=== PATIENT | female | born 1935 | race Caucasian/White ===

== ENCOUNTER 2021-12-13 13:27 | Inpatient (IN) | payer MEDICAID, MEDICARE ==
[~2021-12-13] VITALS: Ht 160 cm; Wt 56.7 kg
[2021-12-13] MEDS ORDERED: DEXAMETHASONE SOD PHOSPHATE 10 MG/ML VIAL IV ONE (14:00)
[2021-12-13] MEDS ORDERED: AMLO-212 PO (14:03)
[2021-12-13] MEDS ORDERED: PRAV40TA3 PO (14:03)
[2021-12-13] MEDS ORDERED: FAMO40TA7 PO (14:03)
[2021-12-13] MEDS ORDERED: ISOS30TA86 PO (14:03)
[2021-12-13] MEDS ORDERED: LISI40TA13 PO (14:03)
[2021-12-13] MEDS ORDERED: AMOX1TAB16 PO (14:03)
[2021-12-13] MEDS ORDERED: ACET-2605 PO (14:03)
[2021-12-13] MEDS ORDERED: ASPI-1169 PO (14:03)
[2021-12-13] MEDS ORDERED: CHOL100043 PO (14:03)
[2021-12-13] MEDS ORDERED: RANO500T6 PO (14:08)
[2021-12-13] MEDS ORDERED: DEXAMETHASONE SOD PHOSPHATE 10 MG/ML VIAL ONE (14:10)
[2021-12-13 14:18] LABS: BASOPHILS % (AUTO) 0.2 % (0.0-2.0); HEMATOCRIT 38 % (33-45); HEMOGLOBIN 12.7 g/dL (11.5-14.8); LYMPHOCYTES # (AUTO) 0.4 K/uL (0.8-4.8); LYMPHOCYTES % (AUTO) 2.9 % (20.0-44.0); MEAN CORPUSCULAR HGB CONC 34 g/dl (31.0-36.0); MEAN CORPUSCULAR VOLUME 88 fL (82-100); MONOCYTES # (AUTO) 0.6 K/uL (0.1-1.30); MONOCYTES % (AUTO) 4.1 % (2.0-12.0); NEUTROPHILS # (AUTO) 13.5 K/uL (1.8-8.9); NEUTROPHILS % (AUTO) 92.8 % (43.0-81.0); PLATELET COUNT (AUTO) 301 K/uL (150-450); RED BLOOD CELL COUNT(AUTO) 4.28 MIL/uL (4.0-5.2); WHITE BLOOD COUNT (AUTO) 14.6 K/uL (4.3-11.0)
[2021-12-13 14:34] LABS: D-DIMER 0.84 mg/L(FEU (0.17-0.50)
[2021-12-13 14:37] LABS: CALCIUM, SERUM 9.8 mg/dL (8.5-10.1); CARBON DIOXIDE 24 mmol/L (21-32); CHLORIDE 107 mmol/L (98-107); CREATININE 1.1 mg/dL (0.6-1.3); GLUCOSE 161 mg/dL (74-106); POTASSIUM 4.3 mmol/L (3.5-5.1); SODIUM SERUM 139 mmol/L (136-145); UREA NITROGEN, BLOOD 33 mg/dL (7-18)
[2021-12-13 14:43] LABS: CREATINE KINASE, TOTAL 30 U/L (26-192)
[2021-12-13 14:47] LABS: C-REACTIVE PROTEIN 5.9 mg/dL (0.0-0.9)
[2021-12-13 14:48] LABS: ALANINE AMINOTRANSFERASE 21 U/L (12-78); ALKALINE PHOSPHATASE 37 U/L (46-116); ASPARTATE AMINOTRANSFERASE 20 U/L (15-37); BILIRUBIN,TOTAL 0.4 mg/dL (0.2-1.0); TOTAL PROTEIN, SERUM 7.5 g/dL (6.4-8.2)
[2021-12-13 15:51] LABS: BILIRUBIN,URINE NEGATIVE (NEGATIVE); COLOR,URINE YELLOW (YELLOW); LEUKOCYTE ESTERASE ,URINE NEGATIVE (NEGATIVE); NITRITE, URINE NEGATIVE (NEGATIVE); PROTEIN,URINE 100 mg/dl (NEGATIVE); UGLUCOSE NEGATIVE (NEGATIVE); UROBILINOGEN,URINE 0.2 EU/dL (0.2)
[2021-12-13 16:58] LABS: BACTERIA,URINE None seen /HPF (None Seen); RBC,URINE 0-2 /HPF (0-2); SQUAMOUS EPITHELIAL CELL,UR Few /HPF (None Seen); WBC,URINE 0-2 /HPF (0-3)
[2021-12-13] MEDS ORDERED: REMDESIVIR (CHARGED) 200 MG, *LOADING DOSE 1 EA in IV NS 0.9% 210 ML IV ONE (17:00)
[2021-12-13] MEDS ORDERED: GUAIFENESIN/CODEINE 10 ML UDC PO PRN (17:00)
[2021-12-13 18:14] VITALS: BP 140/76
[2021-12-13] MEDS: DEXAMETHASONE SOD PHOSPHATE 10 MG/ML VIAL IV SCH ×2 (19:01→22:54)
[2021-12-13] MEDS: AMLODIPINE BESYLATE 5 MG TABLET PO SCH (19:02)
[2021-12-13] MEDS: ACETAMINOPHEN ES 500 MG TABLET PO PRN (19:02)
[2021-12-13 20:00] VITALS: BP 143/71
[2021-12-13] MEDS: RANOLAZINE 500 MG TAB.ER.12H PO SCH (21:33)
[2021-12-14] VITALS: BP 141/69
[2021-12-14 04:00] VITALS: BP 137/71
[2021-12-14 06:58] LABS: BASOPHILS % (AUTO) 0.1 % (0.0-2.0); HEMATOCRIT 38 % (33-45); HEMOGLOBIN 12.7 g/dL (11.5-14.8); LYMPHOCYTES # (AUTO) 0.3 K/uL (0.8-4.8); LYMPHOCYTES % (AUTO) 3.6 % (20.0-44.0); MEAN CORPUSCULAR HGB CONC 34 g/dl (31.0-36.0); MEAN CORPUSCULAR VOLUME 87 fL (82-100); MONOCYTES # (AUTO) 0.3 K/uL (0.1-1.30); NEUTROPHILS # (AUTO) 8.8 K/uL (1.8-8.9); NEUTROPHILS % (AUTO) 93.3 % (43.0-81.0); PLATELET COUNT (AUTO) 307 K/uL (150-450); RED BLOOD CELL COUNT(AUTO) 4.29 MIL/uL (4.0-5.2); WHITE BLOOD COUNT (AUTO) 9.4 K/uL (4.3-11.0)
[2021-12-14 07:33] LABS: ALBUMIN 2.8 g/dL (3.4-5.0); BILIRUBIN,TOTAL 0.5 mg/dL (0.2-1.0); CALCIUM, SERUM 9.9 mg/dL (8.5-10.1); CREATININE 0.9 mg/dL (0.6-1.3); POTASSIUM 4.2 mmol/L (3.5-5.1); TOTAL PROTEIN, SERUM 7.5 g/dL (6.4-8.2)
[2021-12-14 08:00] VITALS: BP 146/75
[2021-12-14] MEDS: ISOSORBIDE MONONITRATE (30MG) 30 MG TAB.SR.24H PO SCH (09:44)
[2021-12-14] MEDS: ASPIRIN 81 MG TAB.CHEW PO SCH (09:44)
[2021-12-14] MEDS: CHOLECALCIFEROL 1,000 UNIT TABLET (VIT D3) PO SCH (09:45)
[2021-12-14] MEDS: RANOLAZINE 500 MG TAB.ER.12H PO SCH ×2 (09:45→21:40)
[2021-12-14] MEDS: ATORVASTATIN 10 MG TABLET PO SCH (09:45)
[2021-12-14 09:46] LABS: C-REACTIVE PROTEIN 6.7 mg/dL (0.0-0.9)
[2021-12-14] MEDS: LISINOPRIL (20MG) 20 MG TABLET PO SCH (09:46)
[2021-12-14] MEDS: AMLODIPINE BESYLATE 5 MG TABLET PO SCH ×2 (09:46→17:32)
[2021-12-14] MEDS: FAMOTIDINE (20 MG) 20 MG TABLET PO SCH (09:46)
[2021-12-14] MEDS: AZITHROMYCIN 500 MG in IV D5W 250 ML IV SCH (10:21)
[2021-12-14] MEDS: DEXAMETHASONE SOD PHOSPHATE 10 MG/ML VIAL IV SCH ×3 (10:21→23:38)
[2021-12-14 12:00] VITALS: BP 141/75
[2021-12-14 16:00] VITALS: BP 118/62
[2021-12-14] MEDS ORDERED: REMDESIVIR (CHARGED) 100 MG in IV NS 0.9% 100 ML IV SCH (17:00)
[2021-12-14] MEDS: ENOXAPARIN SODIUM 30 MG/0.3 ML DISP.SYRIN SQ SCH ×2 (17:35→21:40)
[2021-12-14 20:00] VITALS: BP 163/81
[2021-12-15] VITALS: BP 139/64
[2021-12-15 04:00] VITALS: BP 137/61
[2021-12-15] MEDS: DEXAMETHASONE SOD PHOSPHATE 10 MG/ML VIAL IV SCH ×3 (05:51→16:45)
[2021-12-15 07:39] LABS: BASOPHILS % (AUTO) 0.1 % (0.0-2.0); HEMATOCRIT 37 % (33-45); HEMOGLOBIN 12.6 g/dL (11.5-14.8); LYMPHOCYTES # (AUTO) 0.4 K/uL (0.8-4.8); LYMPHOCYTES % (AUTO) 3.4 % (20.0-44.0); MEAN CORPUSCULAR HGB CONC 34 g/dl (31.0-36.0); MEAN CORPUSCULAR VOLUME 87 fL (82-100); MONOCYTES # (AUTO) 0.6 K/uL (0.1-1.30); MONOCYTES % (AUTO) 5.5 % (2.0-12.0); NEUTROPHILS # (AUTO) 9.7 K/uL (1.8-8.9); PLATELET COUNT (AUTO) 345 K/uL (150-450); RED BLOOD CELL COUNT(AUTO) 4.28 MIL/uL (4.0-5.2); WHITE BLOOD COUNT (AUTO) 10.7 K/uL (4.3-11.0)
[2021-12-15 08:00] VITALS: BP 137/67
[2021-12-15 08:07] LABS: C-REACTIVE PROTEIN 3.3 mg/dL (0.0-0.9)
[2021-12-15 08:10] LABS: CALCIUM, SERUM 9.6 mg/dL (8.5-10.1); POTASSIUM 4.2 mmol/L (3.5-5.1)
[2021-12-15] MEDS: AZITHROMYCIN 500 MG in IV D5W 250 ML IV SCH (08:36)
[2021-12-15] MEDS: AMLODIPINE BESYLATE 5 MG TABLET PO SCH ×2 (08:36→16:46)
[2021-12-15] MEDS: ATORVASTATIN 10 MG TABLET PO SCH (08:37)
[2021-12-15] MEDS: CHOLECALCIFEROL 1,000 UNIT TABLET (VIT D3) PO SCH (08:37)
[2021-12-15] MEDS: ASPIRIN 81 MG TAB.CHEW PO SCH (08:37)
[2021-12-15] MEDS: RANOLAZINE 500 MG TAB.ER.12H PO SCH ×2 (08:37→21:14)
[2021-12-15] MEDS: FAMOTIDINE (20 MG) 20 MG TABLET PO SCH (08:37)
[2021-12-15] MEDS: ISOSORBIDE MONONITRATE (30MG) 30 MG TAB.SR.24H PO SCH (08:37)
[2021-12-15] MEDS: LISINOPRIL (20MG) 20 MG TABLET PO SCH (08:38)
[2021-12-15] MEDS ORDERED: DEXTROSE 50%-WATER 50 ML DISP.SYRIN IV PRN (11:00)
[2021-12-15] MEDS: BLOOD SUGAR DIAGNOSTIC 1 EACH STRIP VI SCH ×3 (11:21→21:58)
[2021-12-15] MEDS: INSULIN REGULAR, HUMAN 100 UNIT/ML 3 ML VIAL SQ PRN ×2 (11:34→16:45)
[2021-12-15 12:00] VITALS: BP 104/56
[2021-12-15 16:00] VITALS: BP 129/71
[2021-12-15] MEDS: METFORMIN 500 MG TABLET PO SCH (16:46)
[2021-12-15] MEDS: ACETAMINOPHEN ES 500 MG TABLET PO PRN (19:06)
[2021-12-15 20:00] VITALS: BP 134/70
[2021-12-15] MEDS: ENOXAPARIN SODIUM 30 MG/0.3 ML DISP.SYRIN SQ SCH (21:16)
[2021-12-15] MEDS: *INSULIN REGULAR(HUMULIN R)HUM 100 UNIT/ML VIAL SQ PRN (21:58)
[2021-12-16] VITALS: BP 113/58
[2021-12-16] MEDS: DEXAMETHASONE SOD PHOSPHATE 10 MG/ML VIAL IV SCH ×5 (00:17→23:00)
[2021-12-16 04:00] VITALS: BP 139/70
[2021-12-16 08:00] VITALS: BP 148/74
[2021-12-16] MEDS: BLOOD SUGAR DIAGNOSTIC 1 EACH STRIP VI SCH ×4 (08:16→22:07)
[2021-12-16] MEDS: AZITHROMYCIN 500 MG in IV D5W 250 ML IV SCH (08:52)
[2021-12-16] MEDS: AMLODIPINE BESYLATE 5 MG TABLET PO SCH ×2 (08:53→17:06)
[2021-12-16] MEDS: ATORVASTATIN 10 MG TABLET PO SCH (08:53)
[2021-12-16] MEDS: ISOSORBIDE MONONITRATE (30MG) 30 MG TAB.SR.24H PO SCH (08:53)
[2021-12-16] MEDS: METFORMIN 500 MG TABLET PO SCH ×2 (08:53→17:06)
[2021-12-16] MEDS: LISINOPRIL (20MG) 20 MG TABLET PO SCH (08:54)
[2021-12-16] MEDS: ASPIRIN 81 MG TAB.CHEW PO SCH (08:54)
[2021-12-16] MEDS: RANOLAZINE 500 MG TAB.ER.12H PO SCH ×2 (08:54→20:32)
[2021-12-16] MEDS: FAMOTIDINE (20 MG) 20 MG TABLET PO SCH (08:54)
[2021-12-16] MEDS: CHOLECALCIFEROL 1,000 UNIT TABLET (VIT D3) PO SCH (08:54)
[2021-12-16] MEDS: INSULIN REGULAR, HUMAN 100 UNIT/ML 3 ML VIAL SQ PRN ×3 (08:56→17:08)
[2021-12-16 12:00] VITALS: BP 129/69
[2021-12-16 16:00] VITALS: BP 136/74
[2021-12-16 20:00] VITALS: BP 141/73
[2021-12-16] MEDS: ENOXAPARIN SODIUM 30 MG/0.3 ML DISP.SYRIN SQ SCH (20:34)
[2021-12-16] MEDS: *INSULIN REGULAR(HUMULIN R)HUM 100 UNIT/ML VIAL SQ PRN (22:06)
[2021-12-17] VITALS (7 sets, daily range): BP systolic 123–147; BP diastolic 59–73
[2021-12-17] MEDS: DEXAMETHASONE SOD PHOSPHATE 10 MG/ML VIAL IV SCH ×4 (05:21→23:21)
[2021-12-17] MEDS: ATORVASTATIN 10 MG TABLET PO SCH (08:25)
[2021-12-17] MEDS: ISOSORBIDE MONONITRATE (30MG) 30 MG TAB.SR.24H PO SCH (08:25)
[2021-12-17] MEDS: AMLODIPINE BESYLATE 5 MG TABLET PO SCH ×2 (08:26→16:33)
[2021-12-17] MEDS: FAMOTIDINE (20 MG) 20 MG TABLET PO SCH (08:26)
[2021-12-17] MEDS: METFORMIN 500 MG TABLET PO SCH ×2 (08:26→16:32)
[2021-12-17] MEDS: RANOLAZINE 500 MG TAB.ER.12H PO SCH ×2 (08:27→20:30)
[2021-12-17] MEDS: ASPIRIN 81 MG TAB.CHEW PO SCH (08:27)
[2021-12-17] MEDS: AZITHROMYCIN 500 MG in IV D5W 250 ML IV SCH (08:28)
[2021-12-17] MEDS: CHOLECALCIFEROL 1,000 UNIT TABLET (VIT D3) PO SCH (08:28)
[2021-12-17] MEDS: BLOOD SUGAR DIAGNOSTIC 1 EACH STRIP VI SCH ×4 (08:28→22:35)
[2021-12-17] MEDS: LISINOPRIL (20MG) 20 MG TABLET PO SCH (08:28)
[2021-12-17] MEDS: INSULIN REGULAR, HUMAN 100 UNIT/ML 3 ML VIAL SQ PRN ×2 (08:47→11:32)
[2021-12-17] MEDS: ENOXAPARIN SODIUM 30 MG/0.3 ML DISP.SYRIN SQ SCH (20:31)
[2021-12-17] MEDS ORDERED: SIMETHICONE 80 MG TAB.CHEW PO PRN (21:30)
[2021-12-17] MEDS: *INSULIN REGULAR(HUMULIN R)HUM 100 UNIT/ML VIAL SQ PRN (22:35)
[2021-12-18] VITALS: BP 148/88
[2021-12-18 04:00] VITALS: BP 145/89
[2021-12-18] MEDS: DEXAMETHASONE SOD PHOSPHATE 10 MG/ML VIAL IV SCH ×3 (04:32→17:36)
[2021-12-18] MEDS: BLOOD SUGAR DIAGNOSTIC 1 EACH STRIP VI SCH ×4 (07:51→22:04)
[2021-12-18 08:00] VITALS: BP 141/80
[2021-12-18] MEDS: RANOLAZINE 500 MG TAB.ER.12H PO SCH ×2 (08:09→21:48)
[2021-12-18] MEDS: ATORVASTATIN 10 MG TABLET PO SCH (08:09)
[2021-12-18] MEDS: CHOLECALCIFEROL 1,000 UNIT TABLET (VIT D3) PO SCH (08:10)
[2021-12-18] MEDS: METFORMIN 500 MG TABLET PO SCH ×2 (08:10→17:27)
[2021-12-18] MEDS: AMLODIPINE BESYLATE 5 MG TABLET PO SCH ×2 (08:10→17:27)
[2021-12-18] MEDS: ISOSORBIDE MONONITRATE (30MG) 30 MG TAB.SR.24H PO SCH (08:10)
[2021-12-18] MEDS: PANTOPRAZOLE 40 MG TABLET.DR PO SCH (08:10)
[2021-12-18] MEDS: LISINOPRIL (20MG) 20 MG TABLET PO SCH (08:11)
[2021-12-18] MEDS: ASPIRIN 81 MG TAB.CHEW PO SCH (08:11)
[2021-12-18 08:14] LABS: BASOPHILS % (AUTO) 0.1 % (0.0-2.0); HEMATOCRIT 40 % (33-45); HEMOGLOBIN 13.5 g/dL (11.5-14.8); LYMPHOCYTES # (AUTO) 0.3 K/uL (0.8-4.8); LYMPHOCYTES % (AUTO) 3.8 % (20.0-44.0); MEAN CORPUSCULAR HGB CONC 34 g/dl (31.0-36.0); MEAN CORPUSCULAR VOLUME 88 fL (82-100); MONOCYTES # (AUTO) 0.6 K/uL (0.1-1.30); MONOCYTES % (AUTO) 7.8 % (2.0-12.0); NEUTROPHILS # (AUTO) 6.7 K/uL (1.8-8.9); NEUTROPHILS % (AUTO) 88.3 % (43.0-81.0); PLATELET COUNT (AUTO) 338 K/uL (150-450); RED BLOOD CELL COUNT(AUTO) 4.53 MIL/uL (4.0-5.2); WHITE BLOOD COUNT (AUTO) 7.5 K/uL (4.3-11.0)
[2021-12-18 08:31] LABS: CARBON DIOXIDE 28 mmol/L (21-32); CHLORIDE 105 mmol/L (98-107); CREATININE 0.9 mg/dL (0.6-1.3); GLUCOSE 139 mg/dL (74-106); POTASSIUM 4.7 mmol/L (3.5-5.1); SODIUM SERUM 138 mmol/L (136-145); UREA NITROGEN, BLOOD 50 mg/dL (7-18)
[2021-12-18 08:43] LABS: CALCIUM, SERUM 9.7 mg/dL (8.5-10.1)
[2021-12-18 08:56] LABS: C-REACTIVE PROTEIN < 0.2 mg/dL (0.0-0.9)
[2021-12-18] MEDS: AZITHROMYCIN 500 MG in IV D5W 250 ML IV SCH (10:00)
[2021-12-18 12:00] VITALS: BP 136/75
[2021-12-18] MEDS: MULTIVITAMINS,THERAGRAN 1 UDTAB TABLET PO SCH (12:04)
[2021-12-18] MEDS: INSULIN REGULAR, HUMAN 100 UNIT/ML 3 ML VIAL SQ PRN (12:18)
[2021-12-18 16:00] VITALS: BP 128/71
[2021-12-18] MEDS: *INSULIN REGULAR(HUMULIN R)HUM 100 UNIT/ML VIAL SQ PRN ×2 (17:28→22:05)
[2021-12-18] MEDS: ENSURE ENLIVE 237 ML LIQUID (VANILLA) PO SCH (17:29)
[2021-12-18 20:00] VITALS: BP 138/81
[2021-12-18] MEDS: ENOXAPARIN SODIUM 30 MG/0.3 ML DISP.SYRIN SQ SCH (21:49)
[2021-12-19] VITALS: BP 144/77
[2021-12-19] MEDS: DEXAMETHASONE SOD PHOSPHATE 10 MG/ML VIAL IV SCH ×3 (01:50→21:17)
[2021-12-19 04:00] VITALS: BP 141/63
[2021-12-19 08:00] VITALS: BP 118/67
[2021-12-19] MEDS: METFORMIN 500 MG TABLET PO SCH ×2 (08:48→16:42)
[2021-12-19] MEDS: INSULIN REGULAR, HUMAN 100 UNIT/ML 3 ML VIAL SQ PRN ×3 (08:51→17:18)
[2021-12-19] MEDS: MULTIVITAMINS,THERAGRAN 1 UDTAB TABLET PO SCH (08:51)
[2021-12-19] MEDS: AMLODIPINE BESYLATE 5 MG TABLET PO SCH ×2 (08:52→16:42)
[2021-12-19] MEDS: RANOLAZINE 500 MG TAB.ER.12H PO SCH ×2 (08:53→21:16)
[2021-12-19] MEDS: ASPIRIN 81 MG TAB.CHEW PO SCH (08:53)
[2021-12-19] MEDS: ATORVASTATIN 10 MG TABLET PO SCH (08:53)
[2021-12-19] MEDS: CHOLECALCIFEROL 1,000 UNIT TABLET (VIT D3) PO SCH (08:53)
[2021-12-19] MEDS: PANTOPRAZOLE 40 MG TABLET.DR PO SCH (08:53)
[2021-12-19] MEDS: ISOSORBIDE MONONITRATE (30MG) 30 MG TAB.SR.24H PO SCH (08:53)
[2021-12-19] MEDS: BLOOD SUGAR DIAGNOSTIC 1 EACH STRIP VI SCH ×4 (08:53→21:17)
[2021-12-19] MEDS: LISINOPRIL (20MG) 20 MG TABLET PO SCH (08:54)
[2021-12-19] MEDS: ENSURE ENLIVE 237 ML LIQUID (VANILLA) PO SCH ×2 (09:10→16:42)
[2021-12-19 12:00] VITALS: BP 123/75
[2021-12-19 16:00] VITALS: BP 135/79
[2021-12-19 20:00] VITALS: BP 117/78
[2021-12-19] MEDS: ENOXAPARIN SODIUM 30 MG/0.3 ML DISP.SYRIN SQ SCH (21:17)
[2021-12-20] VITALS: BP 143/80
[2021-12-20 04:00] VITALS: BP 148/77
[2021-12-20 07:08] LABS: CARBON DIOXIDE 29 mmol/L (21-32); CHLORIDE 105 mmol/L (98-107); CREATININE 0.9 mg/dL (0.6-1.3); GLUCOSE 153 mg/dL (74-106); POTASSIUM 4.7 mmol/L (3.5-5.1); SODIUM SERUM 141 mmol/L (136-145); UREA NITROGEN, BLOOD 49 mg/dL (7-18)
[2021-12-20] MEDS: BLOOD SUGAR DIAGNOSTIC 1 EACH STRIP VI SCH ×4 (07:33→22:08)
[2021-12-20] MEDS: PANTOPRAZOLE 40 MG TABLET.DR PO SCH (07:37)
[2021-12-20] MEDS: INSULIN REGULAR, HUMAN 100 UNIT/ML 3 ML VIAL SQ PRN ×3 (07:38→16:31)
[2021-12-20] MEDS: ENSURE ENLIVE 237 ML LIQUID (VANILLA) PO SCH ×2 (07:39→16:03)
[2021-12-20 08:00] VITALS: BP 149/75
[2021-12-20] MEDS: ASPIRIN 81 MG TAB.CHEW PO SCH (08:11)
[2021-12-20] MEDS: ATORVASTATIN 10 MG TABLET PO SCH (08:11)
[2021-12-20] MEDS: RANOLAZINE 500 MG TAB.ER.12H PO SCH ×2 (08:11→22:07)
[2021-12-20] MEDS: METFORMIN 500 MG TABLET PO SCH ×2 (08:11→16:02)
[2021-12-20] MEDS: MULTIVITAMINS,THERAGRAN 1 UDTAB TABLET PO SCH (08:11)
[2021-12-20] MEDS: CHOLECALCIFEROL 1,000 UNIT TABLET (VIT D3) PO SCH (08:11)
[2021-12-20] MEDS: ISOSORBIDE MONONITRATE (30MG) 30 MG TAB.SR.24H PO SCH (08:11)
[2021-12-20] MEDS: LISINOPRIL (20MG) 20 MG TABLET PO SCH (08:12)
[2021-12-20] MEDS: AMLODIPINE BESYLATE 5 MG TABLET PO SCH ×2 (08:12→16:02)
[2021-12-20 08:29] LABS: C-REACTIVE PROTEIN < 0.2 mg/dL (0.0-0.9)
[2021-12-20] MEDS: DEXAMETHASONE SOD PHOSPHATE 10 MG/ML VIAL IV SCH (09:02)
[2021-12-20 12:00] VITALS: BP 132/67
[2021-12-20 16:00] VITALS: BP 132/67
[2021-12-20 20:00] VITALS: BP 137/75
[2021-12-20] MEDS: ENOXAPARIN SODIUM 30 MG/0.3 ML DISP.SYRIN SQ SCH (22:07)
[2021-12-21] VITALS: BP 140/72
[2021-12-21 04:00] VITALS: BP 150/79
[2021-12-21 08:00] VITALS: BP 140/76
[2021-12-21] MEDS: AMLODIPINE BESYLATE 5 MG TABLET PO SCH ×2 (08:41→17:05)
[2021-12-21] MEDS: RANOLAZINE 500 MG TAB.ER.12H PO SCH ×2 (08:41→20:46)
[2021-12-21] MEDS: DEXAMETHASONE SOD PHOSPHATE 10 MG/ML VIAL IV SCH (08:42)
[2021-12-21] MEDS: ASPIRIN 81 MG TAB.CHEW PO SCH (08:42)
[2021-12-21] MEDS: METFORMIN 500 MG TABLET PO SCH ×2 (08:42→17:05)
[2021-12-21] MEDS: CHOLECALCIFEROL 1,000 UNIT TABLET (VIT D3) PO SCH (08:42)
[2021-12-21] MEDS: ATORVASTATIN 10 MG TABLET PO SCH (08:42)
[2021-12-21] MEDS: PANTOPRAZOLE 40 MG TABLET.DR PO SCH (08:42)
[2021-12-21] MEDS: ISOSORBIDE MONONITRATE (30MG) 30 MG TAB.SR.24H PO SCH (08:42)
[2021-12-21] MEDS: MULTIVITAMINS,THERAGRAN 1 UDTAB TABLET PO SCH (08:42)
[2021-12-21] MEDS: BLOOD SUGAR DIAGNOSTIC 1 EACH STRIP VI SCH ×4 (08:43→21:05)
[2021-12-21] MEDS: LISINOPRIL (20MG) 20 MG TABLET PO SCH (08:43)
[2021-12-21] MEDS: ENSURE ENLIVE 237 ML LIQUID (VANILLA) PO SCH ×2 (09:07→17:05)
[2021-12-21] MEDS: INSULIN REGULAR, HUMAN 100 UNIT/ML 3 ML VIAL SQ PRN (11:17)
[2021-12-21 12:00] VITALS: BP 120/73
[2021-12-21 16:00] VITALS: BP 124/69
[2021-12-21 20:00] VITALS: BP 131/85
[2021-12-21] MEDS: ENOXAPARIN SODIUM 30 MG/0.3 ML DISP.SYRIN SQ SCH (20:46)
[2021-12-22] VITALS: BP 140/73
[2021-12-22 04:00] VITALS: BP 149/81
[2021-12-22 08:00] VITALS: BP 142/77
[2021-12-22] MEDS: AMLODIPINE BESYLATE 5 MG TABLET PO SCH ×2 (08:50→16:18)
[2021-12-22] MEDS: LISINOPRIL (20MG) 20 MG TABLET PO SCH (08:50)
[2021-12-22] MEDS: ASPIRIN 81 MG TAB.CHEW PO SCH (08:50)
[2021-12-22] MEDS: CHOLECALCIFEROL 1,000 UNIT TABLET (VIT D3) PO SCH (08:51)
[2021-12-22] MEDS: DEXAMETHASONE SOD PHOSPHATE 10 MG/ML VIAL IV SCH (08:51)
[2021-12-22] MEDS: RANOLAZINE 500 MG TAB.ER.12H PO SCH ×2 (08:51→20:04)
[2021-12-22] MEDS: MULTIVITAMINS,THERAGRAN 1 UDTAB TABLET PO SCH (08:52)
[2021-12-22] MEDS: METFORMIN 500 MG TABLET PO SCH ×2 (08:52→16:18)
[2021-12-22] MEDS: ISOSORBIDE MONONITRATE (30MG) 30 MG TAB.SR.24H PO SCH (08:52)
[2021-12-22] MEDS: ATORVASTATIN 10 MG TABLET PO SCH (08:52)
[2021-12-22] MEDS: ENSURE ENLIVE 237 ML LIQUID (VANILLA) PO SCH ×2 (08:53→16:17)
[2021-12-22] MEDS: PANTOPRAZOLE 40 MG TABLET.DR PO SCH (08:55)
[2021-12-22] MEDS: BLOOD SUGAR DIAGNOSTIC 1 EACH STRIP VI SCH ×4 (09:11→22:28)
[2021-12-22 12:00] VITALS: BP 117/67
[2021-12-22] MEDS: INSULIN REGULAR, HUMAN 100 UNIT/ML 3 ML VIAL SQ PRN ×2 (12:13→17:45)
[2021-12-22] MEDS ORDERED: BISACODYL SUPP (10 MG) 10 MG/SUPP.RECT SUPP.RECT RC ONE (14:30)
[2021-12-22] MEDS: LACTULOSE 10 G/15 ML UDC (PYXIS) PO SCH ×2 (15:00→17:13)
[2021-12-22 16:00] VITALS: BP 124/55
[2021-12-22 20:00] VITALS: BP 153/54
[2021-12-22] MEDS: ENOXAPARIN SODIUM 30 MG/0.3 ML DISP.SYRIN SQ SCH (20:06)
[2021-12-22] MEDS: *INSULIN REGULAR(HUMULIN R)HUM 100 UNIT/ML VIAL SQ PRN (23:08)
[2021-12-23] VITALS: BP 129/77
[2021-12-23 04:00] VITALS: BP 134/73
[2021-12-23 08:00] VITALS: BP 113/65
[2021-12-23] MEDS: LACTULOSE 10 G/15 ML UDC (PYXIS) PO SCH ×2 (09:08→17:00)
[2021-12-23] MEDS: CHOLECALCIFEROL 1,000 UNIT TABLET (VIT D3) PO SCH (09:09)
[2021-12-23] MEDS: MULTIVITAMINS,THERAGRAN 1 UDTAB TABLET PO SCH (09:09)
[2021-12-23] MEDS: METFORMIN 500 MG TABLET PO SCH ×2 (09:09→17:49)
[2021-12-23] MEDS: PANTOPRAZOLE 40 MG TABLET.DR PO SCH (09:09)
[2021-12-23] MEDS: BLOOD SUGAR DIAGNOSTIC 1 EACH STRIP VI SCH ×4 (09:09→22:54)
[2021-12-23] MEDS: ASPIRIN 81 MG TAB.CHEW PO SCH (09:09)
[2021-12-23] MEDS: DEXAMETHASONE SOD PHOSPHATE 10 MG/ML VIAL IV SCH (09:09)
[2021-12-23] MEDS: RANOLAZINE 500 MG TAB.ER.12H PO SCH ×2 (09:09→21:12)
[2021-12-23] MEDS: ATORVASTATIN 10 MG TABLET PO SCH (09:09)
[2021-12-23] MEDS: LISINOPRIL (20MG) 20 MG TABLET PO SCH (09:10)
[2021-12-23] MEDS: ENSURE ENLIVE 237 ML LIQUID (VANILLA) PO SCH ×2 (09:22→17:57)
[2021-12-23] MEDS: AMLODIPINE BESYLATE 5 MG TABLET PO SCH ×2 (10:32→17:00)
[2021-12-23] MEDS: ISOSORBIDE MONONITRATE (30MG) 30 MG TAB.SR.24H PO SCH (10:32)
[2021-12-23 12:00] VITALS: BP 133/62
[2021-12-23 16:00] VITALS: BP 109/55
[2021-12-23 20:00] VITALS: BP 129/65
[2021-12-23] MEDS: ENOXAPARIN SODIUM 30 MG/0.3 ML DISP.SYRIN SQ SCH (21:14)
[2021-12-23] MEDS: *INSULIN REGULAR(HUMULIN R)HUM 100 UNIT/ML VIAL SQ PRN (22:53)
[2021-12-24] VITALS: BP 129/65
[2021-12-24 04:00] VITALS: BP 117/58
[2021-12-24 06:12] LABS: BASOPHILS % (AUTO) 0.1 % (0.0-2.0); EOSINOPHILS % (AUTO) 0.3 % (0.0-6.0); HEMATOCRIT 38 % (33-45); HEMOGLOBIN 12.8 g/dL (11.5-14.8); LYMPHOCYTES # (AUTO) 0.9 K/uL (0.8-4.8); MEAN CORPUSCULAR HGB CONC 34 g/dl (31.0-36.0); MEAN CORPUSCULAR VOLUME 87 fL (82-100); MONOCYTES # (AUTO) 1.4 K/uL (0.1-1.30); MONOCYTES % (AUTO) 7.6 % (2.0-12.0); NEUTROPHILS # (AUTO) 15.6 K/uL (1.8-8.9); PLATELET COUNT (AUTO) 203 K/uL (150-450); RED BLOOD CELL COUNT(AUTO) 4.36 MIL/uL (4.0-5.2); WHITE BLOOD COUNT (AUTO) 17.9 K/uL (4.3-11.0)
[2021-12-24 06:40] LABS: CALCIUM, SERUM 9.7 mg/dL (8.5-10.1); CREATININE 0.9 mg/dL (0.6-1.3); POTASSIUM 4.4 mmol/L (3.5-5.1)
[2021-12-24] MEDS: BLOOD SUGAR DIAGNOSTIC 1 EACH STRIP VI SCH ×4 (07:34→21:37)
[2021-12-24] MEDS: PANTOPRAZOLE 40 MG TABLET.DR PO SCH (07:34)
[2021-12-24 08:00] VITALS: BP 124/59
[2021-12-24] MEDS: ENSURE ENLIVE 237 ML LIQUID (VANILLA) PO SCH ×2 (08:01→16:53)
[2021-12-24] MEDS: LACTULOSE 10 G/15 ML UDC (PYXIS) PO SCH ×2 (08:34→16:52)
[2021-12-24] MEDS: ISOSORBIDE MONONITRATE (30MG) 30 MG TAB.SR.24H PO SCH (08:34)
[2021-12-24] MEDS: RANOLAZINE 500 MG TAB.ER.12H PO SCH ×2 (08:34→20:29)
[2021-12-24] MEDS: DEXAMETHASONE SOD PHOSPHATE 10 MG/ML VIAL IV SCH (08:34)
[2021-12-24] MEDS: METFORMIN 500 MG TABLET PO SCH ×2 (08:35→16:52)
[2021-12-24] MEDS: CHOLECALCIFEROL 1,000 UNIT TABLET (VIT D3) PO SCH (08:35)
[2021-12-24] MEDS: MULTIVITAMINS,THERAGRAN 1 UDTAB TABLET PO SCH (08:35)
[2021-12-24] MEDS: LISINOPRIL (20MG) 20 MG TABLET PO SCH (08:35)
[2021-12-24] MEDS: ATORVASTATIN 10 MG TABLET PO SCH (08:35)
[2021-12-24] MEDS: AMLODIPINE BESYLATE 5 MG TABLET PO SCH ×2 (08:35→16:52)
[2021-12-24] MEDS: ASPIRIN 81 MG TAB.CHEW PO SCH (08:35)
[2021-12-24] MEDS: INSULIN REGULAR, HUMAN 100 UNIT/ML 3 ML VIAL SQ PRN ×2 (11:24→17:00)
[2021-12-24 12:00] VITALS: BP 99/52
[2021-12-24 13:44] LABS: BILIRUBIN,URINE NEGATIVE (NEGATIVE); COLOR,URINE YELLOW (YELLOW); LEUKOCYTE ESTERASE ,URINE SMALL (NEGATIVE); NITRITE, URINE NEGATIVE (NEGATIVE); PH,URINE 5.5 (5.0-8.0); PROTEIN,URINE TRACE mg/dl (NEGATIVE); UGLUCOSE NEGATIVE (NEGATIVE); UROBILINOGEN,URINE 0.2 EU/dL (0.2)
[2021-12-24 13:48] LABS: BACTERIA,URINE Few /HPF (None Seen); CALCIUM OXALATE CRYSTALS,UR Moderate /HPF (None Seen); RBC,URINE 51-80 /HPF (0-2); SQUAMOUS EPITHELIAL CELL,UR Few /HPF (None Seen)
[2021-12-24 16:00] VITALS: BP 88/54
[2021-12-24 20:00] VITALS: BP_SYST 111; BP_SYST 88; BP_DIAS 54; BP_DIAS 66
[2021-12-24] MEDS: ENOXAPARIN SODIUM 30 MG/0.3 ML DISP.SYRIN SQ SCH (20:31)
[2021-12-24] MEDS: *INSULIN REGULAR(HUMULIN R)HUM 100 UNIT/ML VIAL SQ PRN (21:36)
[2021-12-25] VITALS: BP 117/77
[2021-12-25 04:00] VITALS: BP 101/55
[2021-12-25] MEDS: INSULIN REGULAR, HUMAN 100 UNIT/ML 3 ML VIAL SQ PRN ×2 (07:54→11:28)
[2021-12-25] MEDS: BLOOD SUGAR DIAGNOSTIC 1 EACH STRIP VI SCH ×4 (07:54→21:39)
[2021-12-25 08:00] VITALS: BP 102/65
[2021-12-25] MEDS: LACTULOSE 10 G/15 ML UDC (PYXIS) PO SCH ×2 (08:28→16:57)
[2021-12-25] MEDS: CHOLECALCIFEROL 1,000 UNIT TABLET (VIT D3) PO SCH (08:28)
[2021-12-25] MEDS: ATORVASTATIN 10 MG TABLET PO SCH (08:28)
[2021-12-25] MEDS: PANTOPRAZOLE 40 MG TABLET.DR PO SCH (08:28)
[2021-12-25] MEDS: METFORMIN 500 MG TABLET PO SCH ×2 (08:28→16:58)
[2021-12-25] MEDS: DEXAMETHASONE SOD PHOSPHATE 10 MG/ML VIAL IV SCH (08:29)
[2021-12-25] MEDS: MULTIVITAMINS,THERAGRAN 1 UDTAB TABLET PO SCH (08:29)
[2021-12-25] MEDS: ASPIRIN 81 MG TAB.CHEW PO SCH (08:29)
[2021-12-25] MEDS: ENSURE ENLIVE 237 ML LIQUID (VANILLA) PO SCH ×2 (08:35→16:58)
[2021-12-25] MEDS: ISOSORBIDE MONONITRATE (30MG) 30 MG TAB.SR.24H PO SCH (08:38)
[2021-12-25] MEDS: AMLODIPINE BESYLATE 5 MG TABLET PO SCH ×2 (08:39→16:58)
[2021-12-25] MEDS: LISINOPRIL (20MG) 20 MG TABLET PO SCH (08:39)
[2021-12-25] MEDS: RANOLAZINE 500 MG TAB.ER.12H PO SCH ×2 (08:39→21:03)
[2021-12-25] MEDS ORDERED: LEVO750T46 PO (11:25)
[2021-12-25] MEDS ORDERED: AMLO5TAB4 PO (11:34)
[2021-12-25] MEDS: CEFTRIAXONE 1 G in IV D5W 50 ML IV SCH (11:39)
[2021-12-25 12:00] VITALS: BP 97/51
[2021-12-25 16:00] VITALS: BP 103/46
[2021-12-25] MEDS: *INSULIN REGULAR(HUMULIN R)HUM 100 UNIT/ML VIAL SQ PRN (17:03)
[2021-12-25 20:00] VITALS: BP 109/63
[2021-12-25] MEDS: ENOXAPARIN SODIUM 30 MG/0.3 ML DISP.SYRIN SQ SCH (21:04)
[2021-12-26] VITALS: BP 131/72
[2021-12-26 04:00] VITALS: BP 123/72
[2021-12-26] MEDS: PANTOPRAZOLE 40 MG TABLET.DR PO SCH (07:48)
[2021-12-26] MEDS: BLOOD SUGAR DIAGNOSTIC 1 EACH STRIP VI SCH ×2 (07:48→11:54)
[2021-12-26] MEDS: ENSURE ENLIVE 237 ML LIQUID (VANILLA) PO SCH (07:51)
[2021-12-26 08:00] VITALS: BP 116/67
[2021-12-26] MEDS: ASPIRIN 81 MG TAB.CHEW PO SCH (08:47)
[2021-12-26] MEDS: ATORVASTATIN 10 MG TABLET PO SCH (08:48)
[2021-12-26] MEDS: ISOSORBIDE MONONITRATE (30MG) 30 MG TAB.SR.24H PO SCH (08:48)
[2021-12-26] MEDS: MULTIVITAMINS,THERAGRAN 1 UDTAB TABLET PO SCH (08:48)
[2021-12-26] MEDS: AMLODIPINE BESYLATE 5 MG TABLET PO SCH (08:49)
[2021-12-26] MEDS: CHOLECALCIFEROL 1,000 UNIT TABLET (VIT D3) PO SCH (08:49)
[2021-12-26] MEDS: METFORMIN 500 MG TABLET PO SCH (08:49)
[2021-12-26] MEDS: RANOLAZINE 500 MG TAB.ER.12H PO SCH (08:49)
[2021-12-26] MEDS: LACTULOSE 10 G/15 ML UDC (PYXIS) PO SCH (08:52)
[2021-12-26] MEDS: LISINOPRIL (20MG) 20 MG TABLET PO SCH (08:52)
[2021-12-26] MEDS ORDERED: DEXAMETHASONE SOD PHOSPHATE 4 MG/ML VIAL IV SCH (09:00)
[2021-12-26] MEDS: CEFTRIAXONE 1 G in IV D5W 50 ML IV SCH (11:54)
[2021-12-26 12:00] VITALS: BP 102/57
[2021-12-26] MEDS: INSULIN REGULAR, HUMAN 100 UNIT/ML 3 ML VIAL SQ PRN (12:10)
[2021-12-26 14:00] VITALS: BP 94/63
[2021-12-26 16:00] VITALS: BP 94/63
== END 2021-12-26 16:28 | DRG 137 ==
LOC: ER 13:33 → TELE1 17:35 → TELE-TD 18:12 → TELE1 12-24 07:18
PROVIDERS: ADMIT Internal Medicine; ATTEND Internal Medicine
PROC: XW033E5 Introduction of Remdesivir Anti-infective into Peripheral Vein, Percutaneous Approach, New Technology Group 5 (ICD-10-PCS; principal; 2021-12-13)
DX: U07.1 COVID-19 (principal); J96.21 Acute and chronic respiratory failure with hypoxia; J12.82 Pneumonia due to coronavirus disease 2019; I50.9 Heart failure, unspecified; I11.0 Hypertensive heart disease with heart failure; Z99.81 Dependence on supplemental oxygen; E78.5 Hyperlipidemia, unspecified; Z79.82 Long term (current) use of aspirin; Z79.899 Other long term (current) drug therapy; I25.10 Atherosclerotic heart disease of native coronary artery without angina pectoris; I70.0 Atherosclerosis of aorta; T38.0X5A Adverse effect of glucocorticoids and synthetic analogues, initial encounter; Y92.9 Unspecified place or not applicable; R73.9 Hyperglycemia, unspecified; N39.0 Urinary tract infection, site not specified; R33.9 Retention of urine, unspecified
CPT/HCPCS: 36415; 36600; 71045-TC; 80048-TC; 80053-TC; 81001; 82550-TC; 82803-TC; 82962-TC; 83605-TC; 83615-TC; 83880; 84484-TC; 85025-TC; 85378-TC; 85730-TC; 86140-TC; 87040-TC; 87081-TC; 87086-TC; 93307-TC; 93970-TC; 94799-TC; G0378; J0456; J0696; J1100; J1650; J1815; J3490; J7050; J7060